=== PATIENT | female | born 1940 | race Caucasian/White ===

== ENCOUNTER 2016-12-08 12:39 | Observation (INO) | payer MEDICARE, BC ==
[2016-12-08] MEDS ORDERED: OMEPRAZOLE20 M3 PO (12:52)
[2016-12-08] MEDS ORDERED: BYSTOLIC5 M1 PO (12:52)
[2016-12-08] MEDS ORDERED: LASIX40 M1 PO (12:52)
[2016-12-08] MEDS ORDERED: NORVASC2.5 M1 PO (12:52)
[2016-12-08] MEDS ORDERED: PRAVACHOL80 M1 PO (12:52)
[2016-12-08] MEDS ORDERED: ULTRAM50 M1 PO (12:53)
[2016-12-08] MEDS ORDERED: VENLAFAXINE H37.5 M3 PO (12:53)
[2016-12-08] MEDS ORDERED: NEURONTIN300 M1 PO ×2 (12:54)
[2016-12-08] MEDS ORDERED: PLAVIX75 M1 PO (12:54)
[2016-12-08 13:14] LABS: BASO % 0.3 % (0-2); EOS % 1.9 % (0-7); EOSINOPHIL ABSOLUTE COUNT 0.1 tho/cmm (0.0-0.7); HCT-HEMATOCRIT 40.8 % (34.0-49.0); HGB-HEMOGLOBIN 13.6 gm/dl (12.0-15.5); IMMATURE GRANULOCYTES ABSOLUTE 0.01 tho/cmm (0-0.03); IMMATURE GRANULOCYTES PERCENT 0.2 % (0-0.3); LYMPH % 14.1 % (20-45); LYMPH ABSOLUTE COUNT 0.9 tho/cmm (0.8-4.5); MCH (MEAN CORPUSCULAR HGB) 32.3 pg (28.0-32.0); MCHC MEAN CORPUSCULAR HGB CONC 33.3 % (32.0-36.0); MCV (MEAN CELL VOLUME) 96.9 fl (82.0-96.0); MEAN PLATELET VOLUME 11.7 cmc (9.4-12.4); MONO % 8.6 % (0-12); MONOCYTE ABSOLUTE COUNT 0.5 tho/cmm (0.0-1.2); NEUTROPHIL ABSOLUTE COUNT 4.7 tho/cmm (1.6-8.0); NEUTROPHIL-AUTOMATED 4.7 tho/cmm (1.6-8.0); NEUTROPHILS % 74.9 % (40-80); PLATELET COUNT 166 tho/cmm (150-450); RED BLOOD COUNT 4.21 mil/cmm (4.00-5.20); RED CELL DISTRIBUTION WIDTH 12.8 % (12.4-16.4); WHITE BLOOD COUNT 6.3 tho/cmm (4.0-10.0)
[2016-12-08] MEDS ORDERED: COLACE100 M1 PO (13:16)
[2016-12-08] MEDS ORDERED: FEROSUL325 M1 PO (13:16)
[2016-12-08] MEDS ORDERED: ASPIRIN EC81 MG PO (13:16)
[2016-12-08] MEDS ORDERED: POTASSIUM GLUC500 MG PO (13:17)
[2016-12-08] MEDS ORDERED: VITAMIN D32000 UNI3 PO (13:17)
[2016-12-08] MEDS ORDERED: FLAX SEED OIL1 EAC1 PO (13:18)
[2016-12-08] MEDS ORDERED: TYLENOL EXTRA500 M1 PO (13:18)
[2016-12-08] MEDS ORDERED: FISH OIL EC 1,1 EAC1 PO (13:18)
[2016-12-08] MEDS ORDERED: NITROSTAT0.4 MG/TAB SL (13:19)
[2016-12-08] MEDS ORDERED: REFRESH TEARS15 M1 EACH EYE (13:19)
[2016-12-08 13:30] LABS: ANION GAP 12 mmol/L (0-20); BLOOD UREA NITROGEN 17 mg/dl (6-24); CALCIUM 9.6 mg/dl (8.5-10.5); CARBON DIOXIDE-VENOUS 28 mmol/L (22-32); CHLORIDE 105 mmol/l (96-110); CREATININE 0.99 mg/dl (0.50-1.10); GLUCOSE 135 mg/dL (70-110); SODIUM 141 mmol/L (135-145); eGFR VALUE FOR BLACK 65 mL/Min
[2016-12-09] MEDS ORDERED: ISOSORBIDE MONO10 M1 PO (15:30)
== END 2016-12-09 16:10 ==
LOC: EDMED 12:39 → EMR2 15:43 → CAR1 19:15
PROVIDERS: Emergency Medicine; ADMIT Internal Medicine Interventional Cardiology
DX: I25.119 Atherosclerotic heart disease of native coronary artery with unspecified angina pectoris (principal); I10 Essential (primary) hypertension; E78.5 Hyperlipidemia, unspecified; M19.90 Unspecified osteoarthritis, unspecified site; K21.9 Gastro-esophageal reflux disease without esophagitis; M54.9 Dorsalgia, unspecified; G89.29 Other chronic pain; Z88.5 Allergy status to narcotic agent; Z88.8 Allergy status to other drugs, medicaments and biological substances; Z79.82 Long term (current) use of aspirin; Z79.899 Other long term (current) drug therapy; Z98.49 Cataract extraction status, unspecified eye; Z90.710 Acquired absence of both cervix and uterus; Z82.49 Family history of ischemic heart disease and other diseases of the circulatory system; Z98.890 Other specified postprocedural states
CPT/HCPCS: A9500; G0378; J1650; J2785; J7040; Q9967